=== PATIENT | male | born 1975 | race African-American/Black ===

== ENCOUNTER 2016-11-06 18:37 | Emergency (ER) | payer OTHER ==
[2016-11-06 18:49] VITALS: BP 113/65; PULSE 69; RESP 18; TEMP 98.3
--- NOTE | 2016-11-06 19:12 | ED ---
ENT HPI - General Chief complaint: Dental/Oral Stated complaint: DENTAL PAIN Time Seen by Provider: 11/06/16 18:49 Source: patient, RN notes reviewed Mode of arrival: ambulatory Limitations: no limitations - History of Present Illness Initial comments: Patient is a 41-year-old male presents to the emergency room for evaluation of dental pain. Patient states the pain began about 2 hours ago. Patient states he has been taking [id number] ibuprofen with no relief of symptoms. Patient denies any recent dental trauma or broken teeth. Patient states he hasn 't been to the dentist in about a year. Patient states he is having 10 out of 10 constant pain in his left lower tooth. Patient denies fevers or chills. Patient denies ear pain or neck pain. Patient denies nausea or vomiting. Patient denies any other symptoms or complaints. - Related Data Home Medications Medication Instructions Recorded Confirmed Ibuprofen [Motrin] 400 mg PO Q6HR PRN 11/06/16 11/06/16 Previous Rx's Medication Instructions Recorded HYDROcodone/APAP 5-325MG [[place] 5] 1 each PO Q4HR PRN #12 tab 11/06/16 Ibuprofen [Motrin] 800 mg PO Q6HR PRN #20 tab 11/06/16 Penicillin V Potassium [Pen Vee K] 500 mg PO QID #28 tab 11/06/16 Allergies Allergy/AdvReac Type Severity Reaction Status Date / Time No Known Allergies Allergy Verified 11/06/16 19:04 Review of Systems ROS Statement: Those systems with pertinent positive or pertinent negative responses have been documented in the HPI. ROS Other: All systems not noted in ROS Statement are negative. Past Medical History Past Medical History: No Reported History History of Any Multi-Drug Resistant Organisms: None Reported Past Surgical History: Back Surgery Additional Past Surgical History / Comment(s): vasectomy Past Psychological History: No Psychological Hx Reported Smoking Status: Current every day smoker Past Alcohol Use History: None Reported Past Drug Use History: None Reported General Exam - General Exam Comments Initial Comments: Sitting on exam bed, no acute distress. Limitations: no limitations General appearance: alert, in no apparent distress Head exam: Present: atraumatic, normocephalic, normal inspection Eye exam: Present: normal appearance ENT exam: Present: normal exam Expanded Teeth exam: Present: dental caries, fractured tooth # (Erosion on the lateral portion of tooth #18), dental tenderness # (18) Throat exam: normal inspection Neck exam: Present: normal inspection Respiratory exam: Present: normal lung sounds bilaterally. Absent: respiratory distress Cardiovascular Exam: Present: regular rate, normal rhythm, normal heart sounds GI/Abdominal exam: Present: soft Extremities exam: Present: normal inspection Back exam: Present: normal inspection Neurological exam: Present: alert, oriented X3, CN II-XII intact, normal gait Psychiatric exam: Present: normal affect, normal mood Skin exam: Present: warm, dry, intact, normal color. Absent: rash Course Vital Signs 11/06/16 18:46 Temperature 98.3 F Pulse Rate 69 Respiratory 18 Rate Blood Pressure 113/65 O2 Sat by Pulse 99 Oximetry Procedures - Nerve Block Consent Obtained: verbal consent Local Anesthetic Used: Marcaine 0.5% Side: left Intraoral Nerve Block: infraorbital Procedure Successful: Yes Complications: none Patient Tolerated Procedure: well, no complications Medical Decision Making - Medical Decision Making Patient is a 41-year-old male presents to the emergency room for evaluation of dental pain. Patient was given a dental block. Patient had instant relief. Will send patient home with antibiotics and pain medications and advised him to follow up with a dentist. Patient states he understands everything that was discussed with him. Return parameters discussed. Case discussed with Dr. Delarosa. Disposition Clinical Impression: Pain, dental Disposition: HOME SELF-CARE Condition: Good Instructions: Dental Caries (ED), Toothache (ED) Additional Instructions: Please follow up with a dentist. If you do not have a dentist, you may contact [facility]. Phone number is [phone] for existing clients. For new clients you may call [phone]. Another option is you have is the [facility]. Phone number is [phone]. Medications as directed. [place] gargles. Cold fluids can sometimes help with pain as well. Return to the Emergency Room for any worsening or changing symptoms. Use cold compresses to the outside of the face. Prescriptions: HYDROcodone/APAP 5-325MG [[place] 5] 1 each PO Q4HR PRN #12 tab PRN Reason: Pain Ibuprofen [Motrin] 800 mg PO Q6HR PRN #20 tab PRN Reason: Pain Penicillin V Potassium [Pen Vee K] 500 mg PO QID #28 tab Referrals: Whitley Vicente MD [Primary Care Provider] - 1-2 days Time of Disposition: 19:31
[2016-11-06] MEDS ORDERED: BUPIVACAINE (PF) 0.5% 30 ML VIAL MISCELLANE STA (19:33)
== END 2016-11-06 19:52 | disposition home or self-care (01) ==
LOC: EC 18:37
DX: K08.89 Other specified disorders of teeth and supporting structures (principal); F17.200 Nicotine dependence, unspecified, uncomplicated
CPT/HCPCS: 64400; 99282

== ENCOUNTER 2016-12-27 21:22 | Emergency (ER) | payer OTHER ==
[2016-12-27 22:09] VITALS: BP 124/89; PULSE 90; RESP 20; TEMP 98.2
[2016-12-27] MEDS ORDERED: HYDROcodone/APAP 5-325MG 1 EACH TAB PO STA (22:57)
[2016-12-27] MEDS ORDERED: IBUPROFEN 600 MG STARTER PACK 4 TAB BTL PO STA (22:57)
--- NOTE | 2016-12-27 23:01 | ED ---
General Adult HPI - General Chief complaint: Dental/Oral Stated complaint: Ear Pain/Tooth Pain Time Seen by Provider: 12/27/16 22:51 Source: patient, RN notes reviewed Mode of arrival: ambulatory Limitations: no limitations - History of Present Illness Initial comments: Patient 41-year-old male who presents emergency room today with chief complaint of increased dental pain. Does admit to multiple dental issues. States that he is trying follow-up the dentist. Patient does admit that he was over at [facility] started on amoxicillin which she just finished 2 days ago and given ibuprofen for pain. He states that her pain medicine. Patient states increased pain swelling to the right lower jaw. Does admit to pain over tooth #29. Patient denies any other complaints. Patient denies any recent fever , chills, shortness of breath, chest pain, back pain, abdominal pain, nausea or vomiting, numbness or tingling, dysuria or hematuria, constipation or diarrhea, headaches or visual changes, or any other complaints. - Related Data Previous Rx's Medication Instructions Recorded Clindamycin HCl [Cleocin] 300 mg PO Q6H 10 Days 12/27/16 Hydrocodone/Acetaminophen [[place] 1 each PO Q6HR PRN #20 tab 12/27/16 5-325] Ibuprofen [Motrin] 600 mg PO Q6HR PRN #40 day 12/27/16 Allergies Allergy/AdvReac Type Severity Reaction Status Date / Time No Known Allergies Allergy Verified 12/27/16 22:09 Review of Systems ROS Statement: Those systems with pertinent positive or pertinent negative responses have been documented in the HPI. ROS Other: All systems not noted in ROS Statement are negative. Past Medical History Past Medical History: No Reported History History of Any Multi-Drug Resistant Organisms: None Reported Past Surgical History: Back Surgery Additional Past Surgical History / Comment(s): vasectomy Past Psychological History: No Psychological Hx Reported Smoking Status: Current every day smoker Past Alcohol Use History: None Reported Past Drug Use History: None Reported General Exam - General Exam Comments Initial Comments: General: The patient is awake and alert, in no distress, and does not appear acutely ill. Eye: Pupils are equal, round and reactive to light, extra-ocular movements are intact. No nystagmus. There is normal conjunctiva bilaterally. No signs of icterus. Ears, nose, mouth and throat: There are moist mucous membranes and no oral lesions. Multiple missing teeth with dental caries. Tender over the gumline of tooth #29. No obvious abscess to drain. Uvula midline. Swallows without any difficulty. Neck: The neck is supple, there is no tenderness or JVD. Cardiovascular: There is a regular rate and rhythm. No murmur, rub or gallop is appreciated. Respiratory: Lungs are clear to auscultation, respirations are non-labored, breath sounds are equal. No wheezes, stridor, rales, or rhonchi. Musculoskeletal: Normal ROM, no tenderness. Strength 5/5. Sensation intact. Pulses equal bilaterally 2+. Neurological: A&O x 3. CN II-XII intact, There are no obvious motor or sensory deficits. Coordination appears grossly intact. Speech is normal. Skin: Skin is warm and dry and no rashes or lesions are noted. Psychiatric: Cooperative, appropriate mood & affect, normal judgment. Limitations: no limitations Course Vital Signs 12/27/16 22:07 Temperature 98.2 F Pulse Rate 90 Respiratory 20 Rate Blood Pressure 124/89 O2 Sat by Pulse 100 Oximetry Medical Decision Making - Medical Decision Making started on clindamycin as he recently finished amoxicillin with no improvements. Be given prescription of ibuprofen and [place] for pain. Disposition Clinical Impression: Pain, dental Disposition: HOME SELF-CARE Condition: Good Instructions: Toothache (ED) Additional Instructions: Please follow-up dentist or oral surgeon over the next week. Please use antibiotic and pain medication as prescribed and return to emergency room for any other concerns. Prescriptions: Clindamycin HCl [Cleocin] 300 mg PO Q6H 10 Days Hydrocodone/Acetaminophen [[place] 5-325] 1 each PO Q6HR PRN #20 tab PRN Reason: Pain Ibuprofen [Motrin] 600 mg PO Q6HR PRN #40 day PRN Reason: Pain Time of Disposition: 22:59
== END 2016-12-27 23:24 | disposition home or self-care (01) ==
LOC: EC 21:22
DX: K02.9 Dental caries, unspecified (principal); F17.200 Nicotine dependence, unspecified, uncomplicated
CPT/HCPCS: 99282

== ENCOUNTER 2017-06-15 19:37 | Emergency (ER) | payer OTHER ==
[2017-06-15 19:44] VITALS: BP 119/74; PULSE 74; RESP 18; TEMP 98.4
--- NOTE | 2017-06-15 20:27 | ED ---
General Adult HPI - General Chief complaint: Dental/Oral Stated complaint: dental pain Time Seen by Provider: 06/15/17 20:18 Source: patient, RN notes reviewed Mode of arrival: ambulatory Limitations: no limitations - History of Present Illness Initial comments: 42-year-old male presents emergency Department chief complaint of left-sided dental pain. Patient states it started about 2 or 3 days. He's been using over -the-counter Motrin with no improvement to his pain. Patient denies any fever chills. Patient states he is able to open and close his mouth. Patient denies any pain radiating. Patient states his history of poor teeth. Patient states he will get this when he can get there. Patient was concerned due to his pain in the fact that Motrin is not helping. Patient admits to swelling to the left side of the face. Patient denies any recent fever, chills, shortness of breath, chest pain, back pain, abdominal pain, nausea vomiting, numbness or tingling, dysuria or hematuria, constipation or diarrhea, headaches or visual changes, or any other current symptoms. - Related Data Home Medications Medication Instructions Recorded Confirmed Ibuprofen [Motrin] 800 mg PO Q6HR PRN 06/15/17 06/15/17 Previous Rx's Medication Instructions Recorded Penicillin V Potassium [Pen Vee K] 500 mg PO TID #40 tab 06/15/17 traMADol HCl [Ultram] 50 mg PO Q6H PRN #20 tab 06/15/17 Allergies Allergy/AdvReac Type Severity Reaction Status Date / Time No Known Allergies Allergy Verified 12/27/16 22:09 Review of Systems ROS Statement: Those systems with pertinent positive or pertinent negative responses have been documented in the HPI. ROS Other: All systems not noted in ROS Statement are negative. Past Medical History Past Medical History: No Reported History History of Any Multi-Drug Resistant Organisms: None Reported Past Surgical History: Back Surgery Additional Past Surgical History / Comment(s): vasectomy Past Psychological History: No Psychological Hx Reported Smoking Status: Current every day smoker Past Alcohol Use History: None Reported Past Drug Use History: None Reported General Exam Limitations: no limitations General appearance: alert, in no apparent distress Head exam: Present: atraumatic, normocephalic, normal inspection ENT exam: Present: mucous membranes moist, other (Diffuse dental caries most noticed on teeth #1819. They are fractured as well. No CVA abscess.) Neck exam: Present: normal inspection. Absent: tenderness, meningismus, lymphadenopathy Respiratory exam: Present: normal lung sounds bilaterally. Absent: respiratory distress, wheezes, rales, rhonchi, stridor Cardiovascular Exam: Present: regular rate, normal rhythm, normal heart sounds. Absent: systolic murmur, diastolic murmur, rubs, gallop, clicks Extremities exam: Present: normal inspection, full ROM, normal capillary refill. Absent: tenderness, pedal edema, joint swelling, calf tenderness Back exam: Present: normal inspection Neurological exam: Present: alert, oriented X3 Psychiatric exam: Present: normal affect, normal mood Skin exam: Present: warm, dry, intact, normal color. Absent: rash Course Vital Signs 06/15/17 19:41 Temperature 98.4 F Pulse Rate 74 Respiratory 18 Rate Blood Pressure 119/74 O2 Sat by Pulse 100 Oximetry Medical Decision Making - Medical Decision Making 41-year-old male presents emergency 5 chief complaint of left-sided dental pain. At this time patient will be given antibiotics medication. We discussed return questions. Patient agreement with the plan. Disposition Clinical Impression: Dental caries Disposition: HOME SELF-CARE Condition: Stable Instructions: Dental Caries (ED) Additional Instructions: Please use medication as discussed. Please follow up with family doctor if symptoms have not improved over the next two days. Please return to the emergency room if your symptoms increase or worsen or for any other concerns. [facility] [address] [place] [address] [phone] (existing clients only) For new clients: [phone] 1st consult: $50 (includes Xrays) Usually 30% less then private dentist for visits after. [employer] [facility] [employer] Have to pay $50 for Xrays anmd rest is covered. [phone] Prescriptions: Penicillin V Potassium [Pen Vee K] 500 mg PO TID #40 tab traMADol HCl [Ultram] 50 mg PO Q6H PRN #20 tab PRN Reason: Pain Referrals: Whitley Vicente MD [Primary Care Provider] - 1-2 days Time of Disposition: 20:27
== END 2017-06-15 20:38 | disposition home or self-care (01) ==
LOC: EC 19:37
DX: K02.9 Dental caries, unspecified (principal); F17.200 Nicotine dependence, unspecified, uncomplicated
CPT/HCPCS: 99282

== ENCOUNTER → 2020-10-06 | Outpatient (CLI) | payer OTHER | END | disposition home or self-care (01) | LOC: LABWHC1 16:06 | PROVIDERS: ATTEND Emergency Medicine | DX: Z20.828 Contact with and (suspected) exposure to other viral communicable diseases (principal) | CPT/HCPCS: U0003; C9803 ==

== ENCOUNTER 2022-01-30 13:20 | Emergency (ER) | payer OTHER ==
[2022-01-30] MEDS ORDERED: MECLIZINE 12.5 MG TAB PO STA (14:15)
[2022-01-30] MEDS ORDERED: SODIUM CHLORIDE 0.9% 1,000 ML IV STA (14:15)
[2022-01-30] MEDS ORDERED: diphenhydrAMINE 50 MG/ML 1 ML VIAL IVP STA (14:15)
[2022-01-30] MEDS ORDERED: METOCLOPRAMIDE 5 MG/ML 2 ML VIAL IVP STA (14:15)
--- NOTE | 2022-01-30 14:42 | ED ---
General Adult HPI - General Chief complaint: Nausea/Vomiting/Diarrhea Stated complaint: Light headed, Nausea Time Seen by Provider: 01/30/22 14:02 Source: patient, RN notes reviewed Mode of arrival: ambulatory Limitations: no limitations - History of Present Illness Initial comments: 46-year-old male presents emergency Department chief complaint of nausea. Patient's been having issues for last couple weeks. He states is exacerbated by quick movements when he turned his head. Patient states that he becomes very dizzy and feels nauseated. Denies any focal weakness denies chest pain palpitations. He states that recently had some diarrhea today, feels very cold. No reported fever. No localized abdominal pain. Patient states she's been referred to other emergency departments with no acute findings. He has been taking Zofran at home. - Related Data Home Medications Medication Instructions Recorded Confirmed Ibuprofen [Motrin] 800 mg PO Q6HR PRN 06/15/17 06/15/17 Previous Rx's Medication Instructions Recorded Penicillin V Potassium [Pen Vee K] 500 mg PO TID #40 tab 06/15/17 traMADol HCl [Ultram] 50 mg PO Q6H PRN #20 tab 06/15/17 Meclizine [Antivert] 25 mg PO TID PRN #15 tab 01/30/22 Metoclopramide [Reglan] 10 mg PO TID PRN #15 tab 01/30/22 Allergies Allergy/AdvReac Type Severity Reaction Status Date / Time No Known Allergies Allergy Verified 01/30/22 13:31 Review of Systems ROS Statement: Those systems with pertinent positive or pertinent negative responses have been documented in the HPI. ROS Other: All systems not noted in ROS Statement are negative. Past Medical History Past Medical History: No Reported History History of Any Multi-Drug Resistant Organisms: None Reported Past Surgical History: Back Surgery Additional Past Surgical History / Comment(s): vasectomy Past Psychological History: No Psychological Hx Reported Smoking Status: Current every day smoker Past Alcohol Use History: None Reported Past Drug Use History: None Reported General Exam Limitations: no limitations General appearance: alert, in no apparent distress Head exam: Present: atraumatic, normocephalic, normal inspection Eye exam: Present: normal appearance, PERRL, EOMI. Absent: scleral icterus, conjunctival injection, periorbital swelling ENT exam: Present: normal exam, normal oropharynx, mucous membranes moist Neck exam: Present: normal inspection, full ROM. Absent: tenderness, meningismus, lymphadenopathy Respiratory exam: Present: normal lung sounds bilaterally. Absent: respiratory distress, wheezes, rales, rhonchi, stridor Cardiovascular Exam: Present: regular rate, normal rhythm, normal heart sounds. Absent: systolic murmur, diastolic murmur, rubs, gallop, clicks GI/Abdominal exam: Present: soft, normal bowel sounds. Absent: distended, tenderness, guarding, rebound, rigid Neurological exam: Present: alert, oriented X3, CN II-XII intact Skin exam: Present: warm, dry, intact, normal color. Absent: rash Course Vital Signs 01/30/22 13:31 Temperature 97.8 F Pulse Rate 76 Respiratory 16 Rate Blood Pressure 128/83 O2 Sat by Pulse 100 Oximetry Medical Decision Making - Medical Decision Making 46-year-old male presented from for ongoing nausea. I do believe this is related to some vertigo issues at this time. Patient's very nervous may have some underlying anxiety labs are unremarkable other than being positive for THC. Patient be discharged with nausea meds, Antivert return parameters were discussed. Patient advised follow-up PCP. - Lab Data Result diagrams: 01/30/22 14:35 01/30/22 14:35 Lab Results 01/30/22 01/30/22 01/30/22 Range/Units 14:35 14:35 14:35 WBC 4.9 (3.8-10.6) k/uL RBC 5.14 (4.30-5.90) m/uL Hgb 14.7 (13.0-17.5) gm/dL Hct 46.1 (39.0-53.0) % MCV 89.7 (80.0-100.0) fL MCH 28.6 (25.0-35.0) pg MCHC 31.8 (31.0-37.0) g/dL RDW 12.9 (11.5-15.5) % Plt Count 278 (150-450) k/uL MPV 7.2 Neutrophils % 59 % Lymphocytes % 27 % Monocytes % 8 % Eosinophils % 3 % Basophils % 1 % Neutrophils # 2.9 (1.3-7.7) k/uL Lymphocytes # 1.3 (1.0-4.8) k/uL Monocytes # 0.4 (0-1.0) k/uL Eosinophils # 0.1 (0-0.7) k/uL Basophils # 0.1 (0-0.2) k/uL Sodium 141 (137-145) mmol/L Potassium 4.3 (3.5-5.1) mmol/L Chloride 105 (98-107) mmol/L Carbon Dioxide 27 (22-30) mmol/L Anion Gap 9 mmol/L BUN 9 (9-20) mg/dL Creatinine 0.89 (0.66-1.25) mg/dL Est GFR (CKD-EPI)AfAm >90 (>60 ml/min/1.73 sqM) Est GFR (CKD-EPI)NonAf >90 (>60 ml/min/1.73 sqM) Glucose 95 (74-99) mg/dL Calcium 9.2 (8.4-10.2) mg/dL Magnesium 1.9 (1.6-2.3) mg/dL Total Bilirubin 0.5 (0.2-1.3) mg/dL AST 24 (17-59) U/L ALT 14 (4-49) U/L Alkaline Phosphatase 62 (38-126) U/L Total Protein 8.1 (6.3-8.2) g/dL Albumin 4.3 (3.5-5.0) g/dL Lipase 66 (23-300) U/L Urine Color Light Yellow Urine Appearance Clear (Clear) Urine pH 7.0 (5.0-8.0) Ur Specific [place] 1.005 (1.001-1.035) Urine Protein Negative (Negative) Urine Glucose (UA) Negative (Negative) Urine Ketones Negative (Negative) Urine Blood Negative (Negative) Urine Nitrite Negative (Negative) Urine Bilirubin Negative (Negative) Urine Urobilinogen <2.0 (<2.0) mg/dL Ur Leukocyte Esterase Negative (Negative) Urine Opiates Screen (NotDetected) Ur Oxycodone Screen (NotDetected) Urine Methadone Screen (NotDetected) Ur Propoxyphene Screen (NotDetected) Ur Barbiturates Screen (NotDetected) U Tricyclic Antidepress (NotDetected) Ur Phencyclidine Scrn (NotDetected) Ur Amphetamines Screen (NotDetected) U Methamphetamines Scrn (NotDetected) U Benzodiazepines Scrn (NotDetected) Urine Cocaine Screen (NotDetected) U Marijuana (THC) Screen (NotDetected) 01/30/22 Range/Units 14:37 WBC (3.8-10.6) k/uL RBC (4.30-5.90) m/uL Hgb (13.0-17.5) gm/dL Hct (39.0-53.0) % MCV (80.0-100.0) fL MCH (25.0-35.0) pg MCHC (31.0-37.0) g/dL RDW (11.5-15.5) % Plt Count (150-450) k/uL MPV Neutrophils % % Lymphocytes % % Monocytes % % Eosinophils % % Basophils % % Neutrophils # (1.3-7.7) k/uL Lymphocytes # (1.0-4.8) k/uL Monocytes # (0-1.0) k/uL Eosinophils # (0-0.7) k/uL Basophils # (0-0.2) k/uL Sodium (137-145) mmol/L Potassium (3.5-5.1) mmol/L Chloride (98-107) mmol/L Carbon Dioxide (22-30) mmol/L Anion Gap mmol/L BUN (9-20) mg/dL Creatinine (0.66-1.25) mg/dL Est GFR (CKD-EPI)AfAm (>60 ml/min/1.73 sqM) Est GFR (CKD-EPI)NonAf (>60 ml/min/1.73 sqM) Glucose (74-99) mg/dL Calcium (8.4-10.2) mg/dL Magnesium (1.6-2.3) mg/dL Total Bilirubin (0.2-1.3) mg/dL AST (17-59) U/L ALT (4-49) U/L Alkaline Phosphatase (38-126) U/L Total Protein (6.3-8.2) g/dL Albumin (3.5-5.0) g/dL Lipase (23-300) U/L Urine Color Urine Appearance (Clear) Urine pH (5.0-8.0) Ur Specific [place] (1.001-1.035) Urine Protein (Negative) Urine Glucose (UA) (Negative) Urine Ketones (Negative) Urine Blood (Negative) Urine Nitrite (Negative) Urine Bilirubin (Negative) Urine Urobilinogen (<2.0) mg/dL Ur Leukocyte Esterase (Negative) Urine Opiates Screen Not Detected (NotDetected) Ur Oxycodone Screen Not Detected (NotDetected) Urine Methadone Screen Not Detected (NotDetected) Ur Propoxyphene Screen Not Detected (NotDetected) Ur Barbiturates Screen Not Detected (NotDetected) U Tricyclic Antidepress Not Detected (NotDetected) Ur Phencyclidine Scrn Not Detected (NotDetected) Ur Amphetamines Screen Not Detected (NotDetected) U Methamphetamines Scrn Not Detected (NotDetected) U Benzodiazepines Scrn Not Detected (NotDetected) Urine Cocaine Screen Not Detected (NotDetected) U Marijuana (THC) Screen Detected H (NotDetected) Disposition Clinical Impression: Vertigo, Nausea Disposition: HOME SELF-CARE Condition: Stable Instructions (If sedation given, give patient instructions): Acute Nausea and Vomiting (ED) Additional Instructions: Please return to the Emergency Department if symptoms worsen or any other concerns. Prescriptions: Meclizine [Antivert] 25 mg PO TID PRN #15 tab PRN Reason: Vertigo Metoclopramide [Reglan] 10 mg PO TID PRN #15 tab PRN Reason: Nausea Is patient prescribed a controlled substance at d/c from ED?: No Referrals: Whitley Vicente MD [Primary Care Provider] - 1-2 days Time of Disposition: 15:19
[2022-01-30 14:44] LABS: Basophils # (A) 0.1 k/uL (0-0.2); Basophils % (A) 1 %; Eosinophils # (A) 0.1 k/uL (0-0.7); Eosinophils % (A) 3 %; HCT 46.1 % (39.0-53.0); HGB 14.7 gm/dL (13.0-17.5); Lymphocytes # (A) 1.3 k/uL (1.0-4.8); Lymphocytes % (A) 27 %; MCH 28.6 pg (25.0-35.0); MCHC 31.8 g/dL (31.0-37.0); MCV 89.7 fL (80.0-100.0); Mean Platelet Volume 7.2; Monocytes # (A) 0.4 k/uL (0-1.0); Monocytes % (A) 8 %; Neutrophils # (A) 2.9 k/uL (1.3-7.7); Neutrophils % (A) 59 %; Platelet Count 278 k/uL (150-450); RBC 5.14 m/uL (4.30-5.90); RDW 12.9 % (11.5-15.5); WBC 4.9 k/uL (3.8-10.6)
[2022-01-30 14:58] LABS: Appearance,Urine Clear (Clear); Bilirubin,Urine Negative (Negative); Blood,Urine Negative (Negative); Color,Urine Light Yellow; Glucose,Urine (UA) Negative (Negative); Ketones,Urine Negative (Negative); Leukocyte Esterase,Urine Negative (Negative); Nitrite,Urine Negative (Negative); Protein,Urine Negative (Negative); Specific Gravity,Urine 1.005 (1.001-1.035); Urobilinogen,Urine <2.0 mg/dL (<2.0)
[2022-01-30 14:59] LABS: ALT 14 U/L (4-49); AST 24 U/L (17-59); African American GFR (CKD) >90 (>60 ml/min/1.73 sqM); Albumin 4.3 g/dL (3.5-5.0); Alkaline Phosphatase 62 U/L (38-126); Anion Gap 9 mmol/L; Blood Urea Nitrogen 9 mg/dL (9-20); Calcium 9.2 mg/dL (8.4-10.2); Carbon Dioxide 27 mmol/L (22-30); Chloride 105 mmol/L (98-107); Glucose 95 mg/dL (74-99); Lipase 66 U/L (23-300); Magnesium 1.9 mg/dL (1.6-2.3); Non-African American GFR(CKD) >90 (>60 ml/min/1.73 sqM); Potassium 4.3 mmol/L (3.5-5.1); Sodium 141 mmol/L (137-145); Total Bilirubin 0.5 mg/dL (0.2-1.3); Total Protein 8.1 g/dL (6.3-8.2)
[2022-01-30 15:09] LABS: Amphetamine Screen,Urine Not Detected (NotDetected); Barbiturate Screen,Urine Not Detected (NotDetected); Benzodiazepines Screen,Urine Not Detected (NotDetected); Cocaine Screen,Urine Not Detected (NotDetected); Methadone Screen, Urine Not Detected (NotDetected); Opiate Screen,Urine Not Detected (NotDetected); Oxycodone Screen, Urine Not Detected (NotDetected); Phencyclidine Screen,Urine Not Detected (NotDetected); Tricyclic Antidepressant,Urine Not Detected (NotDetected); Urn Cannabinoid Scrn Detected (NotDetected)
[2022-01-30 15:43] VITALS: BP 120/74; PULSE 59; RESP 18; TEMP 97.1
== END 2022-01-30 15:40 | disposition home or self-care (01) ==
LOC: EC 13:20
DX: R42 Dizziness and giddiness (principal); R11.0 Nausea; F17.200 Nicotine dependence, unspecified, uncomplicated
CPT/HCPCS: 36415; 93005; 80053; 83690; 83735; 85025; 81003; 80306; 99284; 96374; 96375; J1200; J2765